=== PATIENT | male | born 1935 | race Caucasian/White ===

== ENCOUNTER 2019-03-22 05:43 | Emergency (ER) | payer OTHER ==
--- NOTE | 2019-03-22 06:59 | ER ---
Nurse's Notes [facility] Name: Salbador Adams Age: 83 yrs Sex: Male : 1935 Arrival Date: 03/22/2019 Time: 05:47 Bed 16 Private MD: Harley Angulo V Diagnosis: Urinary retention Presentation: 03/22 05:53 Presenting complaint: Patient states: he has not been able to urinate since 1300 aa1 yesterday. Transition of care: patient was not received from another setting of care. Onset of symptoms was March 21, 2019 at 13:00. Risk Assessment: Do you want to hurt yourself or someone else? Patient reports no desire to harm self or others. Initial Sepsis Screen: Does the patient meet any 2 criteria? No. Patient's initial sepsis screen is negative. Does the patient have a suspected source of infection? No. Patient's initial sepsis screen is negative. Care prior to arrival: None. 05:53 Method Of Arrival: Ambulatory aa1 05:53 Acuity: JOSE ALFREDO 3 aa1 Triage Assessment: 05:57 General: Appears in no apparent distress. comfortable, Behavior is calm, cooperative, aa1 appropriate for age. Historical: - Allergies: 05:57 PENICILLINS; aa1 - Home Meds: 05:57 Plavix 75 mg Oral tab 1 tab once daily [Active]; aa1 - PMHx: 05:57 None; aa1 - PSHx: 05:57 carotid stent; Appendectomy; aa1 - Immunization history:: Flu vaccine is not up to date. - Social history:: Smoking status: Patient/guardian denies using tobacco. - Ebola Screening: : No symptoms or risks identified at this time. Screenin:04 Abuse screen: Denies threats or abuse. Denies injuries from another. Nutritional lp1 screening: No deficits noted. Tuberculosis screening: No symptoms or risk factors identified. Fall Risk None identified. Assessment: 06:00 General: Appears in no apparent distress. Behavior is appropriate for age. Pain: lp1 Complains of pain in suprapubic area Quality of pain is described as pressure. Neuro: Level of Consciousness is awake, alert, obeys commands, Oriented to person, place, time, situation. Cardiovascular: Patient's skin is warm and dry. Respiratory: Respiratory effort is even, unlabored. GI: No deficits noted. : Reports inability to void, since yesterday. EENT: No signs and/or symptoms were reported regarding the EENT system. Derm: Skin is intact, is thin, Skin is dry, Skin is pink, warm \T\ dry. Musculoskeletal: No deficits noted. 07:05 Reassessment: Patient states relief Patient states feeling better. Patient states lp1 symptoms have improved. Vital Signs: 05:57 BP 117 / 73; Pulse 82; Resp 18; Temp 97.8; Pulse Ox 98% ; Weight 77.56 kg; Height 6 ft. aa1 2 in. (187.96 cm); Pain 6/10; 07:00 BP 121 / 71; Pulse 79; Resp 16; Temp 98; Pulse Ox 98% ; bp 05:57 Body Mass Index 21.95 (77.56 kg, 187.96 cm) aa1 ED Course: 05:47 Patient arrived in ED. mr 05:47 Harley Angulo MD is Private Physician. mr 05:48 Shellie Conway, RN is Primary Nurse. lp1 05:53 Tello Navarro MD is Attending Physician. ps1 05:56 Triage completed. aa1 05:57 Arm band placed on right wrist. aa1 06:12 Bladder scan completed. 879 ml. lp1 06:15 Patient has correct armband on for positive identification. Placed in gown. lp1 06:20 Banks cath inserted, using sterile technique, 16 Fr., by ak, balloon inflated, to lp1 gravity drainage, urine specimen collected. 06:58 Harley Angulo MD is Referral Physician. ps1 07:00 Primary Nurse role handed off by Shellie Conway, BRANDON bp 07:00 Rogelio Sainz, BRANDON is Primary Nurse. bp 07:04 No provider procedures requiring assistance completed. Patient did not have IV access lp1 during this emergency room visit. Administered Medications: No medications were administered Output: 06:30 Urine: 800ml (Banks); Total: 800ml. lp1 Outcome: 06:59 Discharge ordered by . ps1 07:06 Condition: good lp1 07:17 Discharged to home ambulatory. bp 07:17 Discharge instructions given to patient, Instructed on discharge instructions, follow up and referral plans. Demonstrated understanding of instructions, follow-up care. 07:18 Patient left the ED. bp Signatures: Keri Nielsen RN RN aa1 Rufus, Cari mr Shellie Conway RN RN lp1 Rogelio Sainz RN RN bp Tello Navarro MD MD ps1
--- NOTE | 2019-03-22 07:00 | EDPHYS ---
Physician Documentation [facility] Name: Salbador Adams Age: 83 yrs Sex: Male : 1935 Arrival Date: 03/22/2019 Time: 05:47 Bed 16 Private MD: Harley Angulo V ED Physician Tello Navarro HPI: 03/22 06:03 This 83 yrs old Male presents to ER via Ambulatory with complaints of Urinary ps1 Problem. 06:03 patient states that he has not been able to urinate since 1pm yesterday. He now has ps1 suprapubic pain. Had one episode previously (remotely) 15 years ago after surgery. 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 Not on medications. . Historical: - Allergies: 05:57 PENICILLINS; aa1 - Home Meds: 05:57 Plavix 75 mg Oral tab 1 tab once daily [Active]; aa1 - PMHx: 05:57 None; aa1 - PSHx: 05:57 carotid stent; Appendectomy; aa1 - Immunization history:: Flu vaccine is not up to date. - Social history:: Smoking status: Patient/guardian denies using tobacco. - Ebola Screening: : No symptoms or risks identified at this time. ROS: 06:03 Constitutional: Negative for fever, chills, and weight loss, Eyes: Negative for injury, ps1 pain, redness, and discharge, ENT: Negative for injury, pain, and discharge, Cardiovascular: Negative for chest pain, palpitations, and edema, Respiratory: Negative for shortness of breath, cough, wheezing, and pleuritic chest pain, Abdomen/GI: Negative for abdominal pain, nausea, vomiting, diarrhea, and constipation, MS/Extremity: Negative for injury and deformity. 06:03 : Positive for difficulty urinating. Exam: 06:03 Constitutional: This is a well developed, well nourished patient who is awake, alert, ps1 and in no acute distress. Head/Face: Normocephalic, atraumatic. Eyes: Pupils equal round and reactive to light, extra-ocular motions intact. Lids and lashes normal. Conjunctiva and sclera are non-icteric and not injected. Chest/axilla: Normal chest wall appearance and motion. Nontender with no deformity. No lesions are appreciated. Cardiovascular: Regular rate and rhythm. No gallops, murmurs, or rubs. Normal PMI, no JVD. No pulse deficits. Respiratory: Lungs have equal breath sounds bilaterally, clear to auscultation and percussion. No rales, rhonchi or wheezes noted. No increased work of breathing, no retractions or nasal flaring. Abdomen/GI: Soft, non-tender, with normal bowel sounds. No distension or tympany. No guarding or rebound. No evidence of tenderness throughout. Skin: Warm, dry with normal turgor. Normal color with no rashes, no lesions, and no evidence of cellulitis. MS/ Extremity: Pulses equal, no cyanosis. Neurovascular intact. Full, normal range of motion. Neuro: Awake and alert, GCS 15, oriented to person, place, time, and situation. Cranial nerves II-XII grossly intact. Sensory grossly intact. Vital Signs: 05:57 BP 117 / 73; Pulse 82; Resp 18; Temp 97.8; Pulse Ox 98% ; Weight 77.56 kg; Height 6 ft. aa1 2 in. (187.96 cm); Pain 6/10; 07:00 BP 121 / 71; Pulse 79; Resp 16; Temp 98; Pulse Ox 98% ; bp 05:57 Body Mass Index 21.95 (77.56 kg, 187.96 cm) aa1 MDM: 06:07 Patient medically screened. ps1 06:28 Data reviewed: vital signs, nurses notes, and as a result, I will place chapman for 875 ps1 on bladder scan. . Counseling: I had a detailed discussion with the patient and/or guardian regarding: the historical points, exam findings, and any diagnostic results supporting the discharge/admit diagnosis, the need for outpatient follow up, to return to the emergency department if symptoms worsen or persist or if there are any questions or concerns that arise at home. 03/22 06:29 Order name: Urine Dipstick-Ancillary (obtain specimen); Complete Time: 07:06 ps1 03/22 07:06 Order name: Chapman Leg Bag; Complete Time: 07:06 lp1 Administered Medications: No medications were administered Disposition: 03/22/19 06:59 Discharged to Home. Impression: Urinary retention. - Condition is Stable. - Discharge Instructions: Acute Urinary Retention, Male. - Medication Reconciliation Form, Thank You Letter, Antibiotic Education, Prescription Opioid Use form. - Follow up: Harley Angulo MD; When: 48 Hours; Reason: Further diagnostic work-up, Recheck today's complaints, Continuance of care, Re-evaluation by your physician. Follow up: Emergency Department; When: As needed; Reason: Fever > 102 F, Worsening of condition. - Problem is new. - Symptoms have improved. Signatures: Keri Nielsen RN RN aa1 Shellie Conway RN RN lp1 Rogelio Sainz RN RN bp Tello Navarro MD MD ps1 Corrections: (The following items were deleted from the chart) 07:18 06:59 03/22/2019 06:59 Discharged to Home. Impression: Urinary retention. Condition is bp Stable. Forms are Medication Reconciliation Form, Thank You Letter, Antibiotic Education, Prescription Opioid Use. Follow up: Harley Angulo; When: 48 Hours; Reason: Further diagnostic work-up, Recheck today's complaints, Continuance of care, Re-evaluation by your physician. Follow up: Emergency Department; When: As needed; Reason: Fever > 102 F, Worsening of condition. Problem is new. Symptoms have improved. ps1
[2019-03-22 07:24] VITALS: O2SAT 98
[2019-03-22 07:25] VITALS: BP 121/71; TEMP 98
== END 2019-03-22 07:18 | disposition home or self-care (01) ==
LOC: ER 05:43
DX: R33.9 Retention of urine, unspecified (principal); Z88.0 Allergy status to penicillin; Z95.5 Presence of coronary angioplasty implant and graft
CPT/HCPCS: 51702; 99284

== ENCOUNTER 2022-02-18 00:04 | Emergency (ER) | payer OTHER ==
--- OUTSIDE RECORDS SUMMARY | 2022-02-18 00:09 | XMS REPORT | Continuity of Care Document ---
:1935 Author Organization [facility] t Address [address] [place] [address] Care Team Providers Name Role Phone Harley Reed Primary Care Physician Harley Angulo Attending Clinician Unavailable Deonte Alvarez Attending Clinician Payers Payer Name Policy Type Policy Number Effective Date Expiration Date S ource Problems Condition Condition Condition Status Onset Resolution Last Treating Co mments Source Name Details Category Date Date Treatment Clinician Date Pain Pain Disease Active 2015-06 Univers management management 2-12 it y of 00:00: [address] Melanoma Melanoma Disease Active 2015-06 Unive rs 2-02 ity of 00:00: [address] Melanoma Melanoma Disease Active 2015-06 Unive rs of scalp of scalp 1-15 ity of 00:00: [address] Allergies, Adverse Reactions, Alerts Allergy Allergy Status Severity Reaction(s) Onset Inactive Treating Comm ents Source Name Type Date Date Clinician Penicill Propensi Active Anaphylaxis 2015-06 U nivers ins ty to 1-15 ity of adverse 00:00: [place] reaction 00 Medical s Branch PCN Adverse Active anaphylaxis Comm on Reaction [facility] Social History Social Habit Start Date Stop Date Quantity Comments Source History of Current smoker University of tobacco use [facility] Exposure to 2022-02-01 2022-02-11 Not sure [facility] SARS-CoV-2 00:00:00 08:39:00 [place] [facility] (event) Branch Tobacco use and 2022-02-11 2022-02-11 Smokeless tobacco Un iversity of exposure 00:00:00 00:00:00 non-user [facility] Alcohol intake 2022-02-11 2022-02-11 Current University of 00:00:00 00:00:00 non-drinker of [facility] alcohol (finding) [place] Sex Assigned At [birth year] [facility] y of 00:00:00 00:00:00 [facility] Smoking Status Start Date Stop Date Source Ex-smoker 2022-02-11 00:00:00 2022-02-11 00:00:00 [facility] Medications Ordered Filled Start Stop Current Ordering Indication Dosage Frequency Signature Comments Components Source Medication Medication Date Date Medication? Clinician (SIG) Name Name CALCIUM Yes 630mg Take 630 Unive rs CARBONATE/V 4-25 mg by ity of ITAMIN D3 10:57: mouth [place] (CALCIUM + 53 daily. Medical D ORAL) Branch Fish Yes 1200mg Take 1,200 Unive rs Oil-Lipscomb-3 4-25 mg by ity of Fatty Acids 10:57: mouth 2 Jett as (OMEGA 3 53 (two) Medical FISH OIL) times Branch 684-1,200 daily. mg CpDR Glucosamine Yes 1500mg Take 1,500 Univers HCl 1,500 4-25 mg by ity of mg Tab 10:57: mouth. [address] LYSINE ORAL Yes 500mg Take 500 U nivers 4-25 mg by ity of 10:57: mouth [place] 53 daily. Medical Branch multivitami Yes 1{tbl} Take 1 Un edward n tablet 4-25 tablet by ity of 10:57: mouth [place] 53 daily. Medical Branch clopidogrel Yes 75mg Take 75 mg Univers (PLAVIX) 75 4-25 by mouth ity of mg tablet 10:57: daily. [address] simvastatin Yes simvastati Univers 20 mg 4-25 n 20 mg ity of tablet 10:57: tablet [address] omeprazole 2022-0 Yes 20mg Take 20 mg U nivers (PRILOSEC 4-25 by mouth ity of OTC) 20 mg 10:57: daily. [place] tablet 53 Medical Branch acetaminoph Yes [id number] 1000mg Take 2 Univers en 500 mg 2-14 tablets by ity of tablet 00:00: mouth [place] 00 every 8 Medical (eight) Branch hours. Foam 2018-06 Yes [id number] Use as Univer s Bandage 2-23 directed ity of (TENDRA 00:00: [place] MEPILEX 00 Medical BORDER) 4 X Branch 4 " Bndg tamsulosin 2018-06 Yes TAKE ONE Uni vers 0.4 mg 24 0-02 (1) ity of hr capsule 00:00: CAPSULE(S) [place] 00 BY MOUTH Medical ONCE A Branch DAY. Simvastatin Simvastatin Yes [place] as Common [place] directed [facility] Clopidogrel Clopidogrel Yes [place]erson 1 tablet Common Bisulfate Bisulfate [facility] Vitamin C Vitamin C Yes [place]erson 1 tablet Common [facility] Glucosamine Glucosamine Yes [place] as Common 1500 1500 Bow[place] directed [facility] Ranitidine Ranitidine Yes [place] 1 tablet Common Acid Acid [place] as needed Spirit Senior Resident Care Director Senior Resident Care Director [facility] Multivitami Multivitami Yes [place] as Common n n [place]en directed [facility] Echinacea Echinacea Yes [place]erson TWO Co mmon [place]en TABLETS [facility] Fish Oil Fish Oil Yes Gerson 1 capsule Common Lipscomb-3 Lipscomb3 [facility] L-Lysine L-Lysine Yes [place] as Comm on Bowen directed [facility] Vitamin E Vitamin E Yes Gerson 1 capsule Common Bowen [facility] Tramadol Tramadol Yes [place] (Schedule Common HCl HCl Bowen IV Drug) Spirit TAKE ONE - [facility] ([facility] TABLET(S) [facility] BY MOUTH Medical EVERY SIX Center HOURS NEEDED FOR PAIN. Immunizations Ordered Filled Immunization Date Status Comments Sour e Immunization Name Name SARS-COV-2 COVID-19 2021-06-07 Completed Unive rsity of MODERNA VACCINE 00:00:00 [facility] Branch SARS-COV-2 COVID-19 2020-07-29 Completed Unive rsity of MODERNA VACCINE 00:00:00 [facility] SARS-COV-2 COVID-19 2020-07-01 Completed Unive rsity of MODERNA VACCINE 00:00:00 [facility] Vital Signs Vital Name Observation Time Observation Value Comments Source Systolic blood 2022-02-11 13:45:00 144 mm[Hg] Univer sity of [facility] Diastolic blood 2022-02-11 13:45:00 81 mm[Hg] [facility] Heart rate 2022-02-11 13:45:00 78 /min [facility] Body height 2022-02-11 13:45:00 188 cm [facility] Body weight 2022-02-11 13:45:00 77.111 kg [facility] BMI 2022-02-11 13:45:00 21.83 kg/m2 [facility] Procedures This patient has no known procedures. Encounters Start End Encounter Admission Attending Care Care Encounter Source Date/Time Date/Time Type Type Clinicians Facility Department ID 2021-07-18 Outpatient Kev, STLMLC STLC [id number] Common 12:24:40 Harley [id number] [facility] 2021-07-18 Outpatient Kev, STLMLC STLC [id number] Common 12:24:16 Harley [id number] [facility] 2021-07-18 Outpatient Kev, STLMLC STLC [id number] Common 12:18:52 Harley 11927 [facility] 2021-07-18 Outpatient Kev, STLMLC STLC [id number] Common 12:14:24 Harley [id number] [facility] 2021-07-18 Outpatient Kev, STLMLC STLC [id number] Common 11:49:38 Harley [id number] [facility] 2022-02-11 2022-02-11 Office SHAKEEL Evans [id number] Univers 08:45:00 09:44:34 Visit [facility] [id number] it y of WALKER [id number] Jett as BAO?BLEA [id number] Me lyndsay STOUT [address] [place] [address] MEDICAL OFFICE BUILDING 2020-07-17 2020-07-17 Outpatient STLMLC STLMLC [id number] Common 00:00:00 00:00:00 [facility] 2020-07-11 2020-07-11 Outpatient STLMLC STLMLC [id number] Common 00:00:00 00:00:00 [facility] 2020-07-03 2020-07-03 Outpatient STLMLC STLMLC [id number] Common 00:00:00 00:00:00 [facility] 2020-06-28 2020-06-28 Outpatient STLMLC STLMLC [id number] Common 00:00:00 00:00:00 [facility] 2020-06-22 2020-06-22 Outpatient STLMLC STLMLC [id number] Common 00:00:00 00:00:00 [facility] 2020-06-08 2020-06-08 Outpatient STLMLC STLMLC [id number] Common 00:00:00 00:00:00 [facility] 2020-05-24 2020-05-24 Outpatient STLMLC STLMLC [id number] Common 00:00:00 00:00:00 [facility] 2020-03-28 2020-03-28 Outpatient STLMLC STLMLC [id number] Common 00:00:00 00:00:00 [facility] 2020-03-21 2020-03-21 Outpatient STLMLC STLMLC [id number] Common 00:00:00 00:00:00 [facility] 2020-03-21 2020-03-21 Outpatient STLMLC STLMLC [id number] Common 00:00:00 00:00:00 [facility] 2019-09-07 2019-09-07 [id number] Common 14:00:00 14:00:00 [facility] 2019-08-30 2019-08-30 [facility] [id number] Common 09:15:00 09:15:00 [facility] 2019-08-23 2019-08-23 [facility] [id number] Common 14:00:00 14:00:00 t [facility] 2019-08-18 2019-08-18 [facility] [id number] Common 09:33:00 09:33:00 t [facility] 2019-08-17 2019-08-17 [facility] [id number] Common 08:52:00 08:52:00 t [facility] 2019-08-12 2019-08-12 [facility] [id number] Common 12:43:00 12:43:00 t [facility] 2019-08-10 2019-08-10 [facility] [id number] Common 08:15:00 08:15:00 t [facility] 2019-04-02 2019-04-02 [facility] [id number] Common 09:00:00 09:00:00 t [facility] 2018-12-23 2018-12-23 [facility] [id number] Common 10:00:00 10:00:00 t [facility] 2018-12-16 2018-12-16 [facility] [id number] Common 15:00:00 15:00:00 t [facility] 2018-12-08 2018-12-08 [facility] [id number] Common 15:00:00 15:00:00 t [facility] Results This patient has no known results.
--- NOTE | 2022-02-18 01:27 | EDPHYS ---
Physician Documentation [facility] Name: Salbador Adams Age: 86 yrs Sex: Male : 1935 Arrival Date: 02/18/2022 Time: 00:09 Bed 19 Private MD: ED Physician Oliverio Campo HPI: 02/18 04:02 This 86 yrs old Male presents to ER via Ambulatory with complaints of Urinary Problem. kdr 04:02 The patient presents with Patient has been unable to urinate since about 1700 last kdr evening. He had 1 other episode like this many years ago. At that time he had a Banks temporarily placed and then it was taken out the following day by Dr. Wen. Since then he has had no further issues of this nature. As mentioned he was not able to urinate since 1700 last evening. He denies any medications or any other precipitating factors that were new or different in his routine. He is on cough medicine but that is a routine nightly a fair for him. Upon placement of the Banks, approximately 800 cc was removed. I discussed with the patient the possibility of either leaving the tube in or taking it out now with the hopes that this would resolve his issue and by the time he needed to pee again, the what ever agent or item was responsible for this, it would have been resolved and he could resume normal micturition. Onset: The symptoms/episode began/occurred suddenly, yesterday. Modifying factors: The symptoms are alleviated by nothing, the symptoms are aggravated by movement, pressure, urinating, sexual intercourse. Associated signs and symptoms: The patient has no apparent associated signs or symptoms. Severity of symptoms: At their worst the symptoms were moderate, severe, just prior to arrival, in the emergency department the symptoms are unchanged. The patient has experienced a previous episode. The patient has been recently seen by a physician:. Historical: - Allergies: 00:31 PENICILLINS; bb - Immunization history:: Client reports receiving the 2nd dose of the Covid vaccine. - Social history:: Smoking status: Patient denies any tobacco usage or history of. ROS: 04:02 Constitutional: Negative for fever, chills, and weight loss, Eyes: Negative for injury, kdr pain, redness, and discharge, ENT: Negative for injury, pain, and discharge, Neck: Negative for injury, pain, and swelling, Cardiovascular: Negative for chest pain, palpitations, and edema, Respiratory: Negative for shortness of breath, cough, wheezing, and pleuritic chest pain, Abdomen/GI: Negative for abdominal pain, nausea, vomiting, diarrhea, and constipation, Back: Negative for injury and pain, MS/Extremity: Negative for injury and deformity, Skin: Negative for injury, rash, and discoloration, Neuro: Negative for headache, weakness, numbness, tingling, and seizure activity. Psych: Negative for depression, anxiety, suicide ideation, homicidal ideation, and hallucinations, Allergy/Immunology: Negative for hives, rash, and allergies, Endocrine: Negative for neck swelling, polydipsia, polyuria, polyphagia, and marked weight changes, Hematologic/Lymphatic: Negative for swollen nodes, abnormal bleeding, and unusual bruising. 04:02 : Positive for injury or acute deformity, urinary symptoms, urinary frequency, small amounts, burning with urination, difficulty urinating, Negative for penile pain, testicular pain Exam: 04:02 Constitutional: This is a well developed, well nourished patient who is awake, alert, kdr and in no acute distress. Head/Face: Normocephalic, atraumatic. Eyes: Pupils equal round and reactive to light, extra-ocular motions intact. Lids and lashes normal. Conjunctiva and sclera are non-icteric and not injected. Cornea within normal limits. Periorbital areas with no swelling, redness, or edema. Neck: Trachea midline, no thyromegaly or masses palpated, and no cervical lymphadenopathy. Supple, full range of motion without nuchal rigidity, or vertebral point tenderness. No Meningismus. Chest/axilla: Normal chest wall appearance and motion. Nontender with no deformity. No lesions are appreciated. Cardiovascular: Regular rate and rhythm with a normal S1 and S2. No gallops, murmurs, or rubs. Normal PMI, no JVD. No pulse deficits. Respiratory: Lungs have equal breath sounds bilaterally, clear to auscultation and percussion. No rales, rhonchi or wheezes noted. No increased work of breathing, no retractions or nasal flaring. Abdomen/GI: Soft, non-tender, with normal bowel sounds. No distension or tympany. No guarding or rebound. No evidence of tenderness throughout. Back: No spinal tenderness. No costovertebral tenderness. Full range of motion. Skin: Warm, dry with normal turgor. Normal color with no rashes, no lesions, and no evidence of cellulitis. MS/ Extremity: Pulses equal, no cyanosis. Neurovascular intact. Full, normal range of motion. Neuro: Awake and alert, GCS 15, oriented to person, place, time, and situation. Cranial nerves II-XII grossly intact. Motor strength 5/5 in all extremities. Sensory grossly intact. Cerebellar exam normal. Normal gait. Psych: Awake, alert, with orientation to person, place and time. Behavior, mood, and affect are within normal limits. 04:02 : CVA tenderness, is absent, Male external genitalia: normal. Vital Signs: 00:29 BP 136 / 87; Pulse 73; Resp 16 S; Temp 98.3(O); Pulse Ox 97% on R/A; Weight 77.11 kg bb (R); Height 6 ft. 2 in. (187.96 cm) (R); Pain 8/10; 01:54 BP 120 / 81; Pulse 66; Resp 16; Pulse Ox 95% on R/A; ll3 00:29 Body Mass Index 21.83 (77.11 kg, 187.96 cm) bb MDM: 01:27 Patient medically screened. kdr 04:02 Data reviewed: vital signs, nurses notes, lab test result(s), radiologic studies. kdr Counseling: I had a detailed discussion with the patient and/or guardian regarding: the historical points, exam findings, and any diagnostic results supporting the discharge/admit diagnosis, lab results, the need for outpatient follow up. 02/18 00:30 Order name: Banks; Complete Time: 00:47 ll3 02/18 01:08 Order name: Urine Dipstick-Ancillary (obtain specimen); Complete Time: 01:46 ll3 02/18 01:26 Order name: Misc. Order: Discontinue Banks ; Complete Time: 01:53 kdr Administered Medications: 01:33 Drug: Flomax (tamsulosin) 0.4 mg Route: PO; ll3 01:55 Follow up: Response: No adverse reaction ll3 Disposition Summary: 02/18/22 01:27 Discharge Ordered Location: Home kdr Problem: new kdr Symptoms: have improved kdr Condition: Stable kdr Diagnosis - Urinary retention kdr Followup: kdr - With: Private Physician - When: 2 - 3 days - Reason: If symptoms return, Further diagnostic work-up, Recheck today's complaints, Continuance of care, Re-evaluation by your physician Discharge Instructions: - Discharge Summary Sheet kdr Forms: - Medication Reconciliation Form kdr - Thank You Letter kdr Prescriptions: - tamsulosin 0.4 mg Oral capsule - take 1 capsule by ORAL route once daily 1/2 hour following the same meal each kdr day; 15 capsule; Refills: 0, Product Selection Permitted Signatures: Dispatcher [employer] Oliverio Dudley MD MD kdr Sejal Aguilera, RN RN bb Kristen Boyd RN RN ll3
--- NOTE | 2022-02-18 01:27 | ER ---
Nurse's Notes [facility] Name: Salbador Adams Age: 86 yrs Sex: Male : 1935 Arrival Date: 02/18/2022 Time: 00:09 Bed 19 Private MD: Diagnosis: Urinary retention Presentation: 02/18 00:29 Chief complaint: Patient states: he has been unable to urinate since 1700 last night bb and is having low abdominal pain. Coronavirus screen: At this time, the client does not indicate any symptoms associated with coronavirus-19. Ebola Screen: No symptoms or risks identified at this time. Initial Sepsis Screen: Does the patient meet any 2 criteria? No. Patient's initial sepsis screen is negative. Does the patient have a suspected source of infection? No. Patient's initial sepsis screen is negative. Risk Assessment: Do you want to hurt yourself or someone else? Patient reports no desire to harm self or others. Onset of symptoms was February 18, 2022. 00:29 Method Of Arrival: Ambulatory bb 00:29 Acuity: JOSE ALFREDO 4 bb Historical: - Allergies: 00:31 PENICILLINS; bb - Immunization history:: Client reports receiving the 2nd dose of the Covid vaccine. - Social history:: Smoking status: Patient denies any tobacco usage or history of. Screenin:06 Abuse screen: Denies threats or abuse. Denies injuries from another. Nutritional ll3 screening: No deficits noted. Tuberculosis screening: No symptoms or risk factors identified. Fall Risk None identified. Assessment: 01:05 General: Appears uncomfortable, Behavior is calm, cooperative. Pain: Complains of pain ll3 in pelvis. Neuro: Level of Consciousness is awake, alert, obeys commands, Oriented to person, place, time, situation. Respiratory: Respiratory effort is even, unlabored, Respiratory pattern is regular, symmetrical. : Reports inability to void, pain. Derm: Skin is pink, warm \T\ dry. 01:55 Reassessment: No changes from previously documented assessment. Patient and/or family ll3 updated on plan of care and expected duration. Pain level reassessed. Patient is alert, oriented x 3, equal unlabored respirations, skin warm/dry/pink. Vital Signs: 00:29 BP 136 / 87; Pulse 73; Resp 16 S; Temp 98.3(O); Pulse Ox 97% on R/A; Weight 77.11 kg bb (R); Height 6 ft. 2 in. (187.96 cm) (R); Pain 8/10; 01:54 BP 120 / 81; Pulse 66; Resp 16; Pulse Ox 95% on R/A; ll3 00:29 Body Mass Index 21.83 (77.11 kg, 187.96 cm) ED Course: 00:09 Patient arrived in ED. ja2 00:31 Triage completed. bb 00:31 Oliverio Campo MD is Attending Physician. kdr 00:31 Arm band placed on Patient placed in an exam room, on a stretcher, on pulse oximetry. bb 00:47 Banks cath inserted, using sterile technique, 16 Fr., by tx, balloon inflated, to ll3 gravity drainage, clamped. returned clear yellow urine. Patient tolerated well. 01:06 Patient has correct armband on for positive identification. Placed in gown. Bed in low ll3 position. Call light in reach. Side rails up X 1. 01:54 Banks cath removed intact, balloon deflated. ll3 01:54 No provider procedures requiring assistance completed. Patient did not have IV access ll3 during this emergency room visit. Administered Medications: 01:33 Drug: Flomax (tamsulosin) 0.4 mg Route: PO; ll3 01:55 Follow up: Response: No adverse reaction ll3 Medication: 01:54 VIS not applicable for this client. ll3 Outcome: 01:27 Discharge ordered by . kdr 01:54 Discharged to home ambulatory. ll3 01:54 Condition: stable 01:54 Discharge instructions given to patient, Instructed on discharge instructions, follow up and referral plans. medication usage, Demonstrated understanding of instructions, follow-up care, medications, Prescriptions given X 1. 01:56 Patient left the ED. ll3 Signatures: Oliverio Campo MD MD kdr Ballard, Brenda RN RN Gabriela Saul Lynsea, BRANDON RN ll3
[2022-02-18] MEDS ORDERED: TAMSULOSIN 0.4 MG SR CAP ONE (01:41)
[2022-02-18 01:58] LABS: Urine Blood Negative (Negative); Urine Glucose Negative (Negative); Urine Protein Negative (Negative)
[2022-02-18 03:53] VITALS: TEMP 98.3
[2022-02-18 03:55] VITALS: BP 120/81; O2SAT 95
== END 2022-02-18 01:56 | disposition home or self-care (01) ==
LOC: ER 00:04
DX: R33.9 Retention of urine, unspecified (principal); Z88.0 Allergy status to penicillin
CPT/HCPCS: 51702; 81003; 99284